=== PATIENT | female | born 1985 | race African-American/Black ===

== ENCOUNTER 2019-03-10 13:29 | Emergency (ER) | payer MEDICAID, OTHER ==
[~2019-03-10] VITALS: Ht 157.5 cm; Wt 83.9 kg
[~2019-03-10 13:29] MED LIST: ALBU-136 IH
[2019-03-10 13:33] VITALS: BP 132/78
--- NOTE | 2019-03-10 13:50 | NUR ---
PT C/O PRODUCTIVE COUGH WITH OCCASIONALLY PINKISH PHLEGM X 2 MONTHS. WENT TO [facility] LAST MONTH AND DID CXR WITH NORMAL FINDINGS & PRESCRIBED WITH PROMETHAZINE & PREDNISONE W/O ANY RELIEF. PT DENIES HAVING FEVER, CHILL, NIGHT SWEATS, OR HEMOPTYSIS. PATIENT STATES PAIN OF 0/10 AT THIS TIME; VSS; PATIENT POSITIONED FOR COMFORT; HOB ELEVATED; BEDRAILS UP X1; BED DOWN. ER MD MADE AWARE OF PT STATUS.
--- NOTE | 2019-03-10 15:12 | NUR ---
Dr. Rodríguez is evaluating the patient at bedside.
[2019-03-10 15:36] VITALS: BP 123/71
--- NOTE | 2019-03-10 15:36 | NUR ---
Patient discharged with v/s stable. Written and verbal after care instructions given and explained. Patient alert, oriented and verbalized understanding of instructions. Ambulatory with steady gait. All questions addressed prior to discharge. ID band removed. Patient advised to follow up with PMD. Rx of Promethazine, Benadryl, and Sudafed given. Patient educated on indication of medication including possible reaction and side effects. Opportunity to ask questions provided and answered.
== END 2019-03-10 15:36 | disposition home or self-care (01) ==
LOC: MED 13:29
DX: R05 Cough (principal); J45.909 Unspecified asthma, uncomplicated; Z90.49 Acquired absence of other specified parts of digestive tract; Z79.899 Other long term (current) drug therapy
CPT/HCPCS: 36415; 84443; 99283

== ENCOUNTER 2019-07-27 08:56 | Emergency (ER) | payer MEDICAID ==
[~2019-07-27] VITALS: Ht 157.5 cm; Wt 78.0 kg
--- NOTE | 2019-07-27 08:58 | NUR ---
PATIENT AMBULATED TO BED 7
[2019-07-27 09:01] VITALS: BP 122/69
--- NOTE | 2019-07-27 09:06 | NUR ---
34f C/O R EAR PAIN X1 WEEK. DENIES N/V/FEVER/COUGH/SOB OR RECENT SICK CONTACTS.NO LOC DENIES INJURY TO EAR, DENIES MUFFELED HEARING HX: ASTHMA RX: ALBUTEROL
--- NOTE | 2019-07-27 09:14 | NUR ---
DR PRIDE AT BEDSIDE EVALUATING PATIENT.
--- NOTE | 2019-07-27 09:23 | NUR ---
Patient discharged with v/s stable. Written and verbal after care instructions given and explained. Patient alert, oriented and verbalized understanding of instructions. Ambulatory with steady gait. All questions addressed prior to discharge. ID band removed. Patient advised to follow up with PMD. Rx of CORTISPORIN given. Patient educated on indication of medication including possible reaction and side effects. Opportunity to ask questions provided and answered.
== END 2019-07-27 09:23 | disposition home or self-care (01) ==
LOC: MED 08:56
DX: H60.91 Unspecified otitis externa, right ear (principal); J30.2 Other seasonal allergic rhinitis; J45.909 Unspecified asthma, uncomplicated; Z79.899 Other long term (current) drug therapy
CPT/HCPCS: 99283

== ENCOUNTER 2019-09-13 20:16 | Emergency (ER) | payer MEDICAID ==
[~2019-09-13] VITALS: Ht 157.5 cm; Wt 85.3 kg
[2019-09-13 20:21] VITALS: BP 108/40
--- NOTE | 2019-09-13 20:36 | NUR ---
34 YO F BIB SELF FOR C/C OF 8/10 LEFT UPPER AND LOWER ABDOMINAL PAIN X1.5 WEEKS. PT STATES THE PAIN FEELS LIKE A SHARP CRAMPING PAIN. PT STATES SHE FEELS FATIGUE, DIZZINESS, AND NAUSEA WITHOUT VOMITING OR DIARRHEA. PT STATES SHE HAS LOST HER APPETITE. LBM WAS THIS MORNING, SMALL AMOUNT, SOFT AND FORMED. BOWEL SOUNDS NORMOACTIVE THROUGHOUT. NO FEVER, COUGH, SOB, OR TRAVEL REPORTED. PT STATES SHE TOOK NOTHING FOR THE PAIN TODAY. BED LCOKED AND IN LOWEST POSITION. RX: ALBUTEROL, IUD MED HX: ASTHMA NKA
[2019-09-13] MEDS ORDERED: MORPHINE SULFATE 4 MG/ML SYR IVP ONE (20:40)
[2019-09-13] MEDS ORDERED: ONDANSETRON 4 MG/2 ML VIAL IVP ONE (20:40)
[2019-09-13 21:03] LABS: APPEARANCE,URINE CLEAR (CLEAR); BILIRUBIN,URINE 1+ (NEGATIVE); BLOOD, URINE 2+ (NEGATIVE); COLOR,URINE YELLOW (YELLOW); LEUKOCYTE ESTERASE ,URINE NEGATIVE (NEGATIVE); NITRITE, URINE NEGATIVE (NEGATIVE); UGLUCOSE NEGATIVE (NEGATIVE)
[2019-09-13 21:04] LABS: BASOPHILS # (AUTO) 0.1 K/uL (0.00-0.22); BASOPHILS % (AUTO) 1.5 % (0.0-2.0); EOSINOPHILS # (AUTO) 0.8 K/uL (0-0.4); EOSINOPHILS % (AUTO) 8.1 % (0.0-4.0); HEMATOCRIT 38.2 % (36-48); HEMOGLOBIN 12.5 g/dL (12.0-16.0); LYMPHOCYTES # (AUTO) 2.8 K/uL (2.5-16.5); LYMPHOCYTES % (AUTO) 27.9 % (20.5-51.1); MEAN CORPUSCULAR HEMOGLOBIN 30 pg (27-31); MEAN CORPUSCULAR HGB CONC 33 g/dL (33-37); MEAN CORPUSCULAR VOLUME 92.8 fL (80-94); MONOCYTES # (AUTO) 0.5 K/uL (0.8-1.0); MONOCYTES % (AUTO) 5.6 % (1.7-9.3); NEUTROPHILS # (AUTO) 5.6 K/uL (1.8-7.7); NEUTROPHILS % (AUTO) 56.9 % (42.2-75.2); PLATELET COUNT (AUTO) 331 K/uL (140-450); RED BLOOD CELL COUNT(AUTO) 4.11 MIL/uL (4.20-5.40); RED CELL DISTRIBUTION WIDTH 13.1 % (11.6-13.7); WHITE BLOOD COUNT (AUTO) 9.9 K/uL (4.8-10.8)
[2019-09-13 21:12] LABS: WBC,URINE 0-5 /HPF (0-5)
[2019-09-13 21:21] LABS: ALBUMIN 3.6 g/dL (3.4-5.0); CARBON DIOXIDE 29.7 mmol/L (21-32); CREATININE 0.8 mg/dL (0.6-1.3); POTASSIUM 3.7 mmol/L (3.5-5.1); TOTAL BILIRUBIN 0.3 mg/dL (0.0-1.0)
--- NOTE | 2019-09-13 21:28 | NUR ---
PT RESTING COMFORTABLY IN BED. PT STATES HER PAIN HAS REDUCED FROM 8/10 TO 6/10 BUT DENIES WANTING ANY MORE PAIN MEDICATION. EQUAL CHEST RISE AND FALL.
--- NOTE | 2019-09-13 21:29 | NUR ---
CALLED RADIOLOGY TO INFORM THEM THAT THE PT IS READY FOR CT
--- NOTE | 2019-09-13 22:23 | NUR ---
PT TAKEN TO CT VIA WHEELCHAIR
--- NOTE | 2019-09-13 22:40 | NUR ---
PT RETURNED FROM CT VIA WHEELCHAIR
[2019-09-13 23:03] VITALS: BP 110/65
== END 2019-09-13 23:03 | disposition home or self-care (01) ==
LOC: MED 20:16
DX: K59.00 Constipation, unspecified (principal); D25.9 Leiomyoma of uterus, unspecified; J45.909 Unspecified asthma, uncomplicated; R10.32 Left lower quadrant pain; Z79.899 Other long term (current) drug therapy
CPT/HCPCS: 36415; 74177; 80053; 81001; 81025; 83690; 85025; 93005; 96374; 96375; 99285; J2270; J2405; Q9967

== ENCOUNTER 2020-02-19 21:13 | Emergency (ER) | payer MEDICAID ==
[~2020-02-19] VITALS: Ht 157.5 cm; Wt 90.3 kg
[2020-02-19 21:28] VITALS: BP 126/71
--- NOTE | 2020-02-19 21:31 | NUR ---
To ED bed 07
--- NOTE | 2020-02-19 21:34 | NUR ---
Liz maurer in ED - 02/19/20 at 2134 by [email or web address] PT AMBUALTED TO BED 7 WITH STEADY GAIT.
--- NOTE | 2020-02-19 21:36 | NUR ---
34 Y/O FEMALE BIB SELF WITH C/O THROBBING MIGRAINE H/A 9/10 RADIATING TO THE LEFT SHOULDER, FATIGUE, AND NAUSEA X 1 WEEK & HALF. SHE IS A&O X 4, REPORTS SENSITIVITY TO LIGHT. HOWEVER SHE DENIES HAVING ANY NECK STIFFNESS ABLE TO PERFORM FULL ROM OF NECK AND HEAD. PERRLA, 3MM BRISK. DENIES HAVING ANY DIZZINESS AND BLURRED VISSION. PT IN BED, LOCKED AND LOWEST POSITION. LIGHTS DIMMED FOR COMFORT. MEDHX: ASTHMA & MIGRAINE H/A ALLERGIES: NKA
--- NOTE | 2020-02-19 21:53 | NUR ---
ER MD SALEH AT BEDSIDE EVALUATING PATIENT.
[2020-02-19] MEDS ORDERED: diphenhydrAMINE 50 MG/ML VIAL IM ONE (21:55)
[2020-02-19] MEDS ORDERED: PROCHLORPERAZINE 10 MG/2 ML VIAL IM ONE (21:55)
--- NOTE | 2020-02-19 22:11 | NUR ---
PT AMBULATED TO THE RESTROOM WITH STEADY GAIT, UA PROVIDED.
--- NOTE | 2020-02-19 22:35 | NUR ---
PT RETURNED FROM CT VIA W/C. PT AMBUALTED TO BED 7 WITH STEADY GAIT. BLANKET PROVIDED FOR COMFORT.
--- NOTE | 2020-02-19 23:06 | NUR ---
ERMD RE-EVALUATING PT AT BEDSIDE.
[2020-02-19] MEDS ORDERED: MORPHINE SULFATE 2 MG/ML SYR IM ONE (23:10)
[2020-02-19 23:39] VITALS: BP 126/71
--- NOTE | 2020-02-19 23:39 | NUR ---
Patient discharged with v/s stable. Written and verbal after care instructions given and explained. Patient alert, oriented and verbalized understanding of instructions. Ambulatory with steady gait. All questions addressed prior to discharge. ID band removed. Patient advised to follow up with PMD. Rx of [place] given. Patient educated on indication of medication including possible reaction and side effects. Opportunity to ask questions provided and answered.
== END 2020-02-19 23:39 | disposition home or self-care (01) ==
LOC: MED 21:13
DX: G43.909 Migraine, unspecified, not intractable, without status migrainosus (principal); R03.0 Elevated blood-pressure reading, without diagnosis of hypertension; J45.909 Unspecified asthma, uncomplicated; Z79.899 Other long term (current) drug therapy
CPT/HCPCS: 70450; 81025; 96372; 99284; J0780; J1200; J2270

== ENCOUNTER 2022-07-11 21:54 | Emergency (ER) | payer MEDICAID ==
[~2022-07-11] VITALS: Ht 157.5 cm; Wt 97.5 kg
[~2022-07-11 21:54] MED LIST changes: +ALBU-118 IH; -ALBU-136 IH
[2022-07-11 22:00] VITALS: BP 113/53
--- NOTE | 2022-07-11 22:03 | NUR ---
TO LOBBY A/W BED VIA W/C
--- NOTE | 2022-07-11 22:45 | NUR ---
Patient resting in bed, A/Ox4, chest rise and fall symmetrical, no s/s of distress.
--- NOTE | 2022-07-11 22:50 | NUR ---
ER physician speaking with patient.
[2022-07-11] MEDS ORDERED: NAPR-54 PO (22:58)
--- NOTE | 2022-07-11 23:00 | NUR ---
Patient resting in bed, A/Ox4, chest rise and fall symmetrical, no c/o pain or s/s of distress
[2022-07-11 23:07] VITALS: BP 112/85
== END 2022-07-11 23:05 | disposition home or self-care (01) ==
LOC: MED 21:54
DX: S47.2XXA Crushing injury of left shoulder and upper arm, initial encounter (principal); S33.5XXA Sprain of ligaments of lumbar spine, initial encounter; S60.221A Contusion of right hand, initial encounter; J45.909 Unspecified asthma, uncomplicated; Z79.899 Other long term (current) drug therapy; Z79.1 Long term (current) use of non-steroidal anti-inflammatories (NSAID); W23.0XXA Caught, crushed, jammed, or pinched between moving objects, initial encounter; Y93.89 Activity, other specified; Y92.89 Other specified places as the place of occurrence of the external cause; Y99.8 Other external cause status
CPT/HCPCS: 72110; 73030; 73120; 99284; Q0092

== ENCOUNTER → 2022-12-09 | Emergency (ER) | payer MEDICAID ==
[~2022-12-09] VITALS: Ht 157.5 cm; Wt 96.6 kg
[~2022-12-09] MED LIST changes: +HYDR-5191 PO; +IBUP-2213 PO; +NAPR-54 PO; +ONDA8TAB87 PO
[2022-12-09 10:23] VITALS: BP 111/63; PULSE 63; RESP 16; TEMP 98.1; O2SAT 100
== END | disposition home or self-care (01) ==
LOC: MED 10:10
DX: R51.9 Headache, unspecified (principal); R11.2 Nausea with vomiting, unspecified
CPT/HCPCS: 99281

== ENCOUNTER 2022-12-10 09:16 | Emergency (ER) | payer MEDICAID ==
[~2022-12-10] VITALS: Ht 157.5 cm; Wt 95.7 kg
[~2022-12-10 09:16] MED LIST changes: -HYDR-5191 PO; -IBUP-2213 PO; -ONDA8TAB87 PO
[2022-12-10 09:21] VITALS: BP 139/75; PULSE 79; RESP 18; TEMP 98; O2SAT 97
[2022-12-10] MEDS ORDERED: KETOROLAC 60 MG/2 ML VIAL IM ONE (11:00)
[2022-12-10] MEDS ORDERED: diphenhydrAMINE 50 MG/ML VIAL IVP ONE (11:35)
[2022-12-10] MEDS ORDERED: METOCLOPRAMIDE 10 MG/2 ML INJ VIAL IVP ONE (11:35)
[2022-12-10] MEDS ORDERED: NACL 0.9% 1,000 ML IV ONE (11:35)
[2022-12-10] MEDS ORDERED: IBUP-2213 PO (13:49)
[2022-12-10] MEDS ORDERED: HYDR-5191 PO (13:49)
[2022-12-10] MEDS ORDERED: ONDA8TAB87 PO (13:49)
[2022-12-10 14:14] VITALS: BP 113/47; PULSE 60; RESP 18; TEMP 98; O2SAT 99
== END 2022-12-10 14:05 | disposition home or self-care (01) ==
LOC: MED 09:16
DX: R51.9 Headache, unspecified (principal); M54.2 Cervicalgia; R11.0 Nausea; J45.909 Unspecified asthma, uncomplicated; Z79.899 Other long term (current) drug therapy
CPT/HCPCS: 70450; 81025; 96361; 96372; 96374; 96375; 99285; J1200; J1885; J2765; J7030

== ENCOUNTER 2022-12-19 11:42 | Emergency (ER) | payer MEDICAID ==
[~2022-12-19] VITALS: Ht 157.5 cm; Wt 95.7 kg
[~2022-12-19 11:42] MED LIST changes: +HYDR-5191 PO; +IBUP-2213 PO; +ONDA8TAB87 PO
[2022-12-19 12:01] VITALS: BP 136/73; PULSE 85; RESP 18; TEMP 97; O2SAT 98
[2022-12-19] MEDS ORDERED: ACETAMINOPHEN EXTRA STRENGTH 500 MG TAB PO ONE (12:55)
[2022-12-19] MEDS ORDERED: KETOROLAC 30 MG/ML VIAL IM ONE (12:55)
[2022-12-19] MEDS ORDERED: diazePAM 5 MG TAB PO ONE (12:55)
[2022-12-19 13:09] LABS: BASOPHILS # (AUTO) 0.1 K/uL (0.00-0.22); EOSINOPHILS # (AUTO) 0.7 K/uL (0-0.4); EOSINOPHILS % (AUTO) 9.8 % (0.0-4.0); HEMATOCRIT 38.1 % (36-48); HEMOGLOBIN 12.8 g/dL (12.0-16.0); LYMPHOCYTES # (AUTO) 2.2 K/uL (2.5-16.5); LYMPHOCYTES % (AUTO) 33.2 % (20.5-51.1); MEAN CORPUSCULAR HEMOGLOBIN 30 pg (27-31); MEAN CORPUSCULAR HGB CONC 34 g/dL (33-37); MEAN CORPUSCULAR VOLUME 89.3 fL (80-94); MONOCYTES # (AUTO) 0.5 K/uL (0.8-1.0); MONOCYTES % (AUTO) 6.7 % (1.7-9.3); NEUTROPHILS # (AUTO) 3.3 K/uL (1.8-7.7); NEUTROPHILS % (AUTO) 49.3 % (42.2-75.2); PLATELET COUNT (AUTO) 389 K/uL (140-450); RED BLOOD CELL COUNT(AUTO) 4.27 MIL/uL (4.20-5.40); RED CELL DISTRIBUTION WIDTH 12.4 % (11.6-13.7); WHITE BLOOD COUNT (AUTO) 6.7 K/uL (4.8-10.8)
[2022-12-19 13:31] LABS: ALBUMIN 3.6 g/dL (3.4-5.0); ANION GAP 7.6 (8-16); CALCIUM 8.8 mg/dL (8.5-10.1); CARBON DIOXIDE 31.9 mmol/L (21-32); CREATININE 0.8 mg/dL (0.6-1.3); MAGNESIUM 1.8 mg/dL (1.8-2.4); POTASSIUM 4.5 mmol/L (3.5-5.1); THYROID STIMULATING HORMONE 2.79 uIU/mL (0.34-3.74); TOTAL BILIRUBIN 0.2 mg/dL (0.0-1.0)
[2022-12-19] MEDS ORDERED: LIDO5TDM59 TP (14:24)
[2022-12-19] MEDS ORDERED: HYDR25CA10 PO (14:24)
[2022-12-19] MEDS ORDERED: TIZA-313 PO (14:24)
[2022-12-19] MEDS ORDERED: DICL100G5 TP (14:24)
[2022-12-19 14:49] VITALS: BP 136/73; PULSE 85; RESP 18; TEMP 97; O2SAT 98
== END 2022-12-19 14:49 | disposition home or self-care (01) ==
LOC: MED 11:42
DX: R25.2 Cramp and spasm (principal); R51.9 Headache, unspecified; J45.909 Unspecified asthma, uncomplicated; Z79.899 Other long term (current) drug therapy
CPT/HCPCS: 36415; 80053; 82550; 82553; 83735; 84443; 85025; 96372; 99283; J1885

== ENCOUNTER 2023-11-12 20:42 | Emergency (ER) | payer MEDICAID ==
[~2023-11-12] VITALS: Ht 157.5 cm; Wt 97.1 kg
[~2023-11-12 20:42] MED LIST changes: +DICL100G32 TP; +HYDR-5071 PO; -HYDR-5191 PO; +HYDR25CA10 PO; +LIDO5TDM59 TP; +NAPR-337 PO; -NAPR-54 PO; +TIZA-313 PO
[2023-11-12 20:57] VITALS: BP 111/43; PULSE 84; RESP 16; TEMP 97.4; O2SAT 99
[2023-11-12] MEDS ORDERED: IBUP-2217 PO (23:45)
[2023-11-12] MEDS ORDERED: ACET-8905 PO (23:46)
[2023-11-13] MEDS: KETOROLAC 60 MG/2 ML VIAL IM ONE (00:06)
== END 2023-11-13 00:10 | disposition home or self-care (01) ==
LOC: MED 20:42
DX: N64.4 Mastodynia (principal); N63.21 Unspecified lump in the left breast, upper outer quadrant; N63.11 Unspecified lump in the right breast, upper outer quadrant; J45.909 Unspecified asthma, uncomplicated; Z79.1 Long term (current) use of non-steroidal anti-inflammatories (NSAID); Z79.899 Other long term (current) drug therapy
CPT/HCPCS: 76641; 81025; 96372; 99285; J1885; Q0092